=== PATIENT | male | born 1960 | race Two or more races ===

== ENCOUNTER 2016-08-31 03:24 | Emergency (ER) | payer OTHER ==
[~2016-08-31] VITALS: Ht 177.8 cm; Wt 125.0 kg
[2016-08-31 03:28] VITALS: Ht 177.8 cm; Wt 125.0 kg
[2016-08-31] MEDS ORDERED: INDOMETHACIN 25 MG PO ONE (04:30)
--- NOTE | 2016-08-31 04:57 | ERA ---
ER Documentation Chief Complaint Date/Time DATE: 08/31/16 TIME: 04:53 Chief Complaint left knee pain x 2 days, denies injury HPI This is an otherwise healthy 56-year-old male presenting with 1 day of left knee pain. Patient states that one week ago he had back pain that seems to travel down to his left knee. Has tried icy hot with no relief. Patient states that he is also having pain in his left foot in the first metatarsal area. Claims to be in a monogamous relationship. Denies trauma, fever, opening and scan, recent GI illness, recent antibiotic use, recent hospitalization, recent travel, similar symptoms in the past, nausea, vomiting, diarrhea, constipation, headache or meningismus. Patient states that his vaccination status is up-to-date. ROS All systems reviewed and are negative except as per history of present illness. Medications Home Meds Active Scripts Ibuprofen* (Motrin*) 600 Mg Tab, 600 MG PO Q6, #30 TAB Prov:CONOR SWANN PA-C 08/31/16 Allergies Allergies: Coded Allergies: No Known Allergy (Unverified , 01/29/16) PMhx/Soc History of Surgery: Yes (HEART CATHERIZATION 2003) Anesthesia Reaction: No Hx Neurological Disorder: No Hx Respiratory Disorders: No Hx Cardiac Disorders: Yes (CAD, HLD) Hx Psychiatric Problems: No Hx Miscellaneous Medical Probl: No Hx Alcohol Use: Yes (SOCIAL DRINKER 10/20/2015) Hx Substance Use: No Hx Tobacco Use: Yes (CIGARETTES 2-3 PACKS A DAY ) Smoking Status: Current every day smoker Physical Exam Vitals Vital Signs Date Time Temp Pulse Resp B/P Pulse Ox O2 Delivery O2 Flow Rate FiO2 08/31/16 03:28 97.7 70 20 144/75 98 Physical Exam Const: Well-appearing 56-year-old male no acute distress presenting with Head: Atraumatic, normocephalic Eyes: Normal Conjunctiva. PERRLA, EOMI bilaterally. ENT: Normal External Ears, Nose and Mouth. Neck: Full range of motion..~ No meningismus. Resp: Clear to auscultation bilaterally Cardio: Regular rate and rhythm, no murmurs Abd: Soft, non tender, non distended. Normal bowel sounds Skin: No petechiae or rashes. As noted in extremity examination. Back: No midline or flank tenderness. Negative straight leg raise test. Ext: No cyanosis, or edema. Full range of motion of all extremities. Extremely tender, swollen, erythematous first metatarsal the left foot makes consistent with 4 day ago. Left knee was moderately tender on the medial aspect with erythema without any sharp demarcation. Full range of motion. Neur: Awake and alert. Neurovascularly intact bilaterally. Psych: Normal Mood and Affect Results 24 hrs Current Medications Medications (Trade) Dose Ordered Sig/[place] Route PRN Reason Start Time Stop Time Status Last Admin Dose Admin Indomethacin (Indocin) 25 mg ONCE ONCE PO 08/31/16 04:30 08/31/16 04:31 DC 08/31/16 04:36 Procedures/MDM Well-appearing overweight 56-year-old male who is presenting with signs and symptoms consistent with possible gout versus pseudogout. There is a swollen erythematous first metatarsal area that is extremely tender consistent with a put a dry and gout. There is redness and warmth of the left knee. X-ray was obtained to rule out infection. I have very low suspicion for septic arthritis at this time. Denies any past medical history or allergies. Patient was given indomethacin in the ED with moderate relief of symptoms. X-ray of the left knee was taken, read by the radiologist and revealed the following impression: IMPRESSION: Unremarkable examination of the left knee. At this time I very low suspicion for fracture or other bony pathology, tendon or ligamentous pathologies, septic arthritis, and pharyngitis, cellulitis, sepsis, bacteremia, compartment syndrome or other serious bacterial infections. I have no suspicion for any acute spinal pathologies. Patient's vitals are stable and his current condition is appropriate for discharge. Patient will be discharged at this time with ibuprofen for suspected gout versus pseudogout. Patient has been advised to follow-up with primary care provider to evaluate and possibly treat chronic conditions. Departure Diagnosis: Primary Impression: Knee pain Qualified Code: M25.562 - Acute pain of left knee Additional Instructions: Follow up with your PCP within the next 1-3 days for a more thorough evaluation and a possible referral to a specialist. Return the the emergency department immediately if symptoms worsen or change. If you have any questions regarding medications, ask your pharmacist or us before you leave. If any adverse reactions occur while taking your medications, discontinue the treatment and return to the emergency department immediately. Take your medications as directed, and complete the entire course of treatment. CONOR SWANN PA-C Aug 31, 2016 04:57
[2016-08-31] MEDS ORDERED: IBUP-1542 PO (05:45)
--- NOTE | 2016-08-31 06:27 | RADRPT ---
PROCEDURE: LEFT KNEE - 3 VIEWS CLINICAL INDICATION: 56-year-old male with left knee pain. TECHNIQUE: AP, cross-table lateral and oblique view of the left knee were obtained. The images rev iewed on a PACS workstation. COMPARISON: None. FINDINGS: The bones appear intact, with no evidence of fracture, erosion, demineralization, or dislocation. Th e alignment of the femorotibial and patellofemoral joints appears normal. No joint space narrowing i s seen. IMPRESSION: Unremarkable examination of the left knee. .Lior Campos MD, MD Date Time Electronically viewed and signed by .Lior Campos MD, MD on 08/31/2016 06:26 .M/
== END 2016-08-31 06:05 | disposition home or self-care (01) ==
LOC: FTE 03:24
DX: M25.562 Pain in left knee (principal); I25.10 Atherosclerotic heart disease of native coronary artery without angina pectoris; F17.210 Nicotine dependence, cigarettes, uncomplicated
CPT/HCPCS: 73562; Z7502; Z7610

== ENCOUNTER 2017-08-13 14:37 | Inpatient (IN) | END 2017-08-13 15:45 | disposition left against medical advice (07) | DRG 392 ==